=== PATIENT | male | born 1980 | race Caucasian/White ===

== ENCOUNTER 2022-10-13 13:54 | Inpatient (IN) | payer OTHER, SELFPAY ==
[2022-10-13] VITALS (14 sets, daily range): BP systolic 100–120; BP diastolic 66–85; PULSE 64–110; RESP 14–18; TEMP 36.1–36.9; O2SAT 90–97; BMI 28.8
--- NOTE | 2022-10-13 | XR_ITS ---
WS: [id number] Right knee, C-arm fluoroscopy, 10/13/2022 Clinical Data: ANTONIO PICS Comparison: Right leg, 10/13/2022 Findings: There are 2 rods inserted into the mid right tibia to reduce the comminuted fracture of the proximal right tibia. XR/XR knee RT 1-2V [id number] Impression: External skeletal fixation with rods in right mid tibia.
--- NOTE | 2022-10-13 14:10 | XR_ITS ---
WS: [id number] Exam: XR pelvis 1-2V* [id number] Date/Time of Exam: 10/13/2022 2:43 PM Reason For Exam: trauma No acute pelvic fracture identified. The superior aspect of the pelvis and sacrum are out of the fiel d-of-view. The hip joints are intact. Visualized SI joints are intact. XR/XR pelvis 1-2V* [id number] IMPRESSION: 1. No acute pelvic fracture identified. The superior aspect of the pelvis and s acrum are out of the [id number]-ocpf.
--- NOTE | 2022-10-13 14:10 | XR_ITS ---
WS: [id number] Exam: XR femur RT min 2V* [id number] Date/Time of Exam: 10/13/2022 2:43 PM Reason For Exam: trauma No acute femoral fracture or dislocation noted. Soft tissues are unremarkable. Again noted is a sever romero comminuted fracture of the upper tibia. XR/XR femur RT min 2V* [id number] IMPRESSION: 1. No acute femoral fracture.
[2022-10-13] MEDS: morphine 4 mg/mL SDV 1 mL 6 MG IVP ×2 (14:29→16:11)
[2022-10-13] MEDS: ondansetron 2 mg/ML SDV 2 mL 4 MG IVP (14:30)
--- NOTE | 2022-10-13 14:37 | XR_ITS ---
WS: [id number] Exam: XR tibia fibula RT 2V [id number] Date/Time of Exam: 10/13/2022 2:43 PM Reason For Exam: trauma There is a severely comminuted pylon type fracture of the proximal tibia with the lateral displacemen t and posterior angulation. There is also a displaced comminuted fracture of the upper fibular diaphy sis with about 15% apposition. The remaining lower leg is angulated laterally. No other fractures of the tibia or fibula. XR/XR tibia fibula RT 2V [id number] IMPRESSION: 1. Severely comminuted displaced angulated fracture of the proximal tibia. Ther e is marked separation and disruption of the lateral tibial plateau. 2. Displaced fracture of the proximal fibula with only minimal apposition.
[2022-10-13 14:50] LABS: Basophils # 0.1 10^3/uL (0.0-0.1); Basophils % 0.6 %; Eosinophils # 0.1 10^3/uL (0.0-0.8); Eosinophils % 0.9 %; Hematocrit 39.5 % (42.0-52.0); Hemoglobin 13.8 g/dL (11.7-16.6); Lymphocytes # 2.2 10^3/uL (0.8-4.8); Lymphocytes % 18.9 %; Mean Corpuscular HGB Conc 34.9 g/dL (30.0-36.0); Mean Corpuscular Hemoglobin 30.2 pg (28.0-34.0); Mean Corpuscular Volume 86.4 fl (80-94); Mean Platelet Volume 9.8 fL (7.4-10.4); Monocytes # 0.6 10^3/uL (0.2-0.9); Monocytes % 4.7 %; Neutrophils # 8.74 10^3/uL (1.8-7.7); Neutrophils % 74.6 %; Nucleated Red Blood Cells % 0 %; Platelet Count 344 10^3/cmm (130-400); Red Blood Count 4.57 10^6/uL (4.1-5.3); Red Cell Distribution Width 12.3 % (12.1-15.1); White Blood Count 11.7 10^3/uL (4.0-10.0)
--- NOTE | 2022-10-13 15:02 | ED_ITS ---
HPI - Extremity Problem General: Chief complaint: Extremity Injury, Lower Stated complaint: FALL/ LEG FRACTURE Time Seen by Provider: 10/13/22 13:58 Source: patient Mode of arrival: ambulatory History of Present Illness: 42-year-old female who presents emergency room after falling off the back end of a truck when he was loading a pallet he landed on sideways on his feet felt a popping sensation in his right knee was unable to walk has an obvious deformity denies striking his head no other injuries no loss conscious he has not eaten since yesterday. He is not on any anticoagulants no previous injury to the right knee. Complaint: extremity pain Onset (ago): minute(s) Pain Consistency: constant Location: right and knee Quality: sharp Relieving factors: nothing Exacerbating factors: nothing Associated symptoms: Deny arthralgias, chest pain, fever(s), myalgias, rash, short of breath or other Review of Systems Const: Denies: fever(s), chills, fatigue or malaise ENMT: Denies: throat pain, ear or mastoid pain, nasal discharge or nasal congestion Card: Denies: chest pain Resp: Denies: dyspnea, productive cough or non-productive cough GI: Denies: abdominal pain, nausea, vomiting, hematemesis, coffee ground emesis, diarrhea, constipation, bloating, hematochezia or melena : Denies: flank pain, dysuria, urinary frequency or urinary urgency Musc: Reports: joint pain and joint swelling; Denies: neck pain or back pain Skin/Breast: Denies: rash or pruritus PFSH ED PFSH: Medical History No significant past medical history Surgical History No pertinent past surgical history Family History Denies family history of CAD (coronary artery disease) Social History Alcohol intake: current Alcohol intake frequency: holidays/special occasions only Substance/Drug Use: never Physical Exam Const: GENERAL APPEARANCE: cooperative and comfortable ORIENTATION/CONSCIOUSNESS: Yes awake, Yes oriented to person, Yes oriented to place and Yes oriented to time HENMT: COMMON NORMALS: normocephalic, atraumatic and hearing grossly normal bilaterally HEAD & SCALP: normocephalic and atraumatic Resp: COMMON NORMALS: normal respiratory effort, No retractions, No use of accessory muscles and clear to auscultation bilaterally AUSCULTATION: clear to auscultation bilaterally Cardio: COMMON NORMALS: regular rate, regular rhythm and No murmurs present (Cardio) RATE: regular rate RHYTHM: regular rhythm GI: COMMON NORMALS: Soft to palpation and No hepatosplenomegaly present AUSCULTATION: Yes normoactive bowel sounds PALPATION: Yes Soft to palpation, No Tenderness to palpation present (GI), No Guarding due to palpation present (GI) and Yes No hepatosplenomegaly present Extremity: COMMON NORMALS: capillary refill normal and no calf tenderness OTHER: Obvious deformity of the proximal tibia on the right. Neuro: SENSORIUM/ORIENTATION: Yes oriented to person, Yes oriented to place and Yes oriented to time Skin: COMMON NORMALS: no rashes or lesions noted GENERAL SKIN EXAM: no rashes or lesions noted Course Vital Signs: Vital signs: Vital Signs Temperature 98.8 F 10/14/22 16:24 Pulse Rate 68 10/14/22 16:24 Respiratory Rate 16 10/14/22 16:24 Blood Pressure 119/71 10/14/22 16:24 Pulse Oximetry 98 10/14/22 16:24 Oxygen Delivery Me thod 10/14/22 12:45 Oxygen Flow Rate 2 10/14/22 03:00 MDM - Extremity (Nontraumatic) Medical Decision Making Comminuted proximal tibia fracture extending into the tibial plateau with significant displacement. I discussed Dr. Camarena he feels patient will need to be stabilized immediately. He is come down and seen the patient in the department will admit to medicine and consult orthopedics. Medical Records I reviewed the patient's medical records. Lab Data I reviewed the patient's lab results. 10/13/22 14:38 10/13/22 14:38 Radiology Impressions Knee X-Ray 10/13/22 00:00 Impression: External skeletal fixation with rods in right mid tibia. Femur X-Ray 10/13/22 14:10 IMPRESSION: 1. No acute femoral fracture. Pelvis X-Ray 10/13/22 14:10 IMPRESSION: 1. No acute pelvic fracture identified. The superior aspect of the pelvis and sacrum are out of the [id number]. Tibia/Fibula X-Ray 10/13/22 14:37 IMPRESSION: 1. Severely comminuted displaced angulated fracture of the proximal tibia. There is marked separation and disruption of the lateral tibial plateau. 2. Displaced fracture of the proximal fibula with only minimal apposition. Knee CT 10/14/22 08:00 IMPRESSION: 1. Moderate lipohemarthrosis. 2. Severely comminuted fracture proximal tibia with intra-articular extension, distraction and significant rotational positioning of fragments at the tibial spine. 3. Comminuted displaced fracture proximal fibula diaphysis and fracture of the proximal cortical margin of the fibula anteriorly. 4. Small collection of gas adjacent to the patella medially. Laboratory Results WBC 11.7 10^3/uL (4.0-10.0) H 10/13/22 14:38 RBC 4.57 10^6/uL (4.1-5.3) 10/13/22 14:38 Hgb 13.8 g/dL (11.7-16.6) 10/13/22 14:38 Hct 39.5 % (42.0-52.0) L 10/13/22 14:38 MCV 86.4 fl (80-94) 10/13/22 14:38 MCH 30.2 pg (28.0-34.0) 10/13/22 14:38 MCHC 34.9 g/dL (30.0-36.0) 10/13/22 14:38 RDW 12.3 % (12.1-15.1) 10/13/22 14:38 Plt Count 344 10^3/cmm (130-400) 10/13/22 14:38 MPV 9.8 fL (7.4-10.4) 10/13/22 14:38 Neut % (Auto) 74.6 % 10/13/22 14:38 Lymph % (Auto) 18.9 % 10/13/22 14:38 [place] % (Auto) 4.7 % 10/13/22 14:38 Eos % (Auto) 0.9 % 10/13/22 14:38 Baso % (Auto) 0.6 % 10/13/22 14:38 Neut # (Auto) 8.74 10^3/uL (1.8-7.7) H 10/13/22 14:38 Lymph # (Auto) 2.2 10^3/uL (0.8-4.8) 10/13/22 14:38 [place] # (Auto) 0.6 10^3/uL (0.2-0.9) 10/13/22 14:38 Eos # (Auto) 0.1 10^3/uL (0.0-0.8) 10/13/22 14:38 Baso # (Auto) 0.1 10^3/uL (0.0-0.1) 10/13/22 14:38 Nucleated RBC % (auto) 0 % 10/13/22 14:38 Nucleated RBCs # 0.0 /100WBC 10/13/22 14:38 PT 13.80 SECONDS (12.1-14.9) 10/13/22 14:38 INR 1.03 (0.8-1.2) 10/13/22 14:38 Sodium 135 mmol/L (136-145) L 10/13/22 14:38 Potassium 3.5 mmol/L (3.5-5.1) 10/13/22 14:38 Chloride 98 mmol/L (98-107) 10/13/22 14:38 Carbon Dioxide 27 mmol/L (22-29) 10/13/22 14:38 Anion Gap 13.5 (5-19) 10/13/22 14:38 BUN 13 mg/dL (6-20) 10/13/22 14:38 Creatinine 1.1 mg/dL (0.7-1.2) 10/13/22 14:38 GFR Calculation 73.4 mL/min (90-130) L 10/13/22 14:38 Glucose 126 mg/dL (65-115) H 10/13/22 14:38 Calculated Osmolality 282 mOsm/kg (285-295) L 10/13/22 14:38 Calcium 9.2 mg/dL (8.5-10.5) 10/13/22 14:38 Creatine Kinase 129 U/L (39-308) 10/13/22 14:38 Discharge Plan Discharge Patient Disposition: Admitted As Inpatient Admit Provider: Niko Camarena Clinical Impression: Closed bicondylar fracture of right tibial plateau, Fracture of fibula, proximal Condition: Stable Discharge Diet: Advance as tolerated Discharge Activity: Limit activity as instructed Coding Level of Care Code ED Link Fabric Machine Operator for Mitchell Ohara
[2022-10-13 15:10] LABS: Blood Urea Nitrogen 13 mg/dL (6-20); Calcium 9.2 mg/dL (8.5-10.5); Carbon Dioxide 27 mmol/L (22-29); Chloride 98 mmol/L (98-107); Glomerular Filtration Rate 73.4 mL/min (90-130); Glucose 126 mg/dL (65-115); Osmolality Calculated 282 mOsm/kg (285-295); Sodium 135 mmol/L (136-145)
[2022-10-13 15:11] LABS: Anion Gap 13.5 (5-19); Potassium 3.5 mmol/L (3.5-5.1); Slide Review Slide Review Perform
[2022-10-13 15:15] LABS: INR 1.03 (0.8-1.2)
--- NOTE | 2022-10-13 15:50 | PM.HP ---
Providers/Chief Complaint Chief Complaint: FALL/ LEG FRACTURE History of Present Illness Jonel Driver is a 42 year old male who presented after sustaining a fall while he was unloading his truck. He was diagnosed with tibial fracture, was taken to the OR right away. Patient did not stress any syncope, chest pain, shortness of breath nausea, vomiting or diarrhea. He is physically active. Has poor dentition otherwise no significant medical history. He lost his balance and fell off the rail. He has history of sacral fracture in the past Review of Systems Const: Denies: fever(s) Eyes: Denies: change in vision Card: Denies: chest pain Resp: Denies: dyspnea GI: Denies: abdominal pain : Denies: flank pain Musc: Reports: back pain, extremity pain, joint pain, joint swelling, joint redness, joint stiffness, limited range of motion, muscle weakness and deformity; Denies: neck pain Skin/Breast: Denies: rash Neuro: Denies: headache(s) Psych: Denies: anxiety Endo: Denies: polyuria Jace/Lymph: Denies: easy bruising All/Imm: Denies: urticaria Medications/Allergies Home Medications Medication Instructions Recorded Confirmed Last Taken Type aspirin 325 mg tablet 325 mg PO DAILY blot clot 10/14/22 10/16/22 Unknown Rx prevention 21 days #21 tabs calcium carbonate 600 mg-vitamin 1 tab PO BID Bone healing 30 days 10/14/22 10/16/22 Unknown Rx D3 10 mcg (400 unit) tablet #60 tabs losartan 100 1 tab PO DAILY 10/14/22 10/16/22 Unknown History mg-hydrochlorothiazide 12.5 mg tablet ondansetron 4 mg disintegrating 4 mg PO DAILY Nausea 5 days #5 tabs 10/14/22 10/16/22 Unknown Rx tablet oxycodone-acetaminophen 5 mg-325 1 tab PO Q6H PRN pain, postop 7 10/14/22 10/16/22 Unknown Rx mg tablet (Percocet) days #28 tabs paroxetine HCl 20 mg tablet 20 mg PO DAILY 10/14/22 10/16/22 Unknown History sennosides 8.6 mg-docusate sodium 1 tab-cap PO DAILY #14 tabs 10/14/22 10/16/22 Unknown Rx 50 mg tablet (Senna-S) Allergies Allergy/AdvReac Type Severity Reaction Status Date / Time No Known Drug Allergies Allergy Unknown Verified 10/13/22 14:27 PFSH Acute PFSH: Medical History No significant past medical history Surgical History No pertinent past surgical history Family History Denies family history of CAD (coronary artery disease) Social History Alcohol intake: current Alcohol intake frequency: holidays/special occasions only Substance/Drug Use: never Vitals/I&O/Wt Last Vital Signs Temp 98.1 F 10/13/22 13:55 Pulse 69 10/13/22 13:55 Resp 15 10/13/22 14:29 BP 110/70 10/13/22 13:55 Pulse Ox 95 10/13/22 14:29 O2 Del Method 10/13/22 13:55 Weight last 48 hrs Weight 86.183 kg Physical Exam Narrative: Young male No sign of vascular compromise of lower extremities Abdomen soft S1, S2 Currently on room air Pleasant cooperative Hanley catheter in place Doing well on room air No audible stridor or wheezing Nonfocal neuro exam Laying supine Data 10/13/22 14:38 10/13/22 14:38 A&P Assessment and plan (1) Closed bicondylar fracture of right tibial plateau: (2) No pertinent past surgical history: (3) No significant past medical history: Plan Tibial fracture N.p.o. Orthopedics consulted Patient going to the OR right away Hemodynamically stable Noted of preoperative cardiac clearance Hanley catheter in place Opioids along bowel regimen N.p.o. DVT prophylaxis SCDs for now Attestations Medical Necessity Statement*: Surgery today anticipating more than 2 midnight Diagnoses Closed bicondylar fracture of right tibial plateau S82.141A No pertinent past surgical history Z78.9 No significant past medical history
--- NOTE | 2022-10-13 16:12 | P.CONIM_ITS ---
Providers/Reason For Consult Consulting Physician/Specialty*: Niko Camarena, /orthopedic surgery Reason for Consult*: Right bicondylar tibial plateau and proximal fibula fracture, unstable Requesting Physician: Dr. Ram Attending Physician: Dr. Burk History of Present Illness History of Present Illness Jonel Driver is a 42 year old male who presents to ED today after falling off the back end of a truck when he was loading a pallet he landed on sideways on his feet felt a popping sensation in his right knee was unable to walk has an obvious deformity, denies striking his head, no other injuries, no loss conscious. He has not eaten since yesterday.? He is not on any anticoagulants no previous injury to the right knee. Patient denies any prior issues with his right knee. He is in severe pain unable to bear weight. Has noticeable swelling. Denies any numbness or tingling able to wiggle his toes. 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 Denies any pain out of proportion at this time. Denies any fevers chills chest pain shortness of breath nausea or vomiting Past medical history per patient positive for hypertension and previous smoking history however he states he has quit for the past 5 years. Review of Systems General: Reports: 10 or more systems reviewed and unremarkable except in HPI and below Medications/Allergies Allergies Allergy/AdvReac Type Severity Reaction Status Date / Time No Known Drug Allergies Allergy Unknown Verified 10/13/22 14:27 PFSH Acute PFSH: Medical History No significant past medical history Surgical History No pertinent past surgical history Vitals/I&O/Wt Last Vital Signs Temp 98.1 F 10/13/22 13:55 Pulse 69 10/13/22 13:55 Resp 16 10/13/22 16:11 BP 110/70 10/13/22 13:55 Pulse Ox 95 10/13/22 16:11 O2 Del Method 10/13/22 13:55 Weight last 48 hrs Weight 190 lb Physical Exam Narrative: General appearance?cooperative and moderate discomfort secondary to pain HEENT normocephalic atraumatic Respiratory normal respiratory effort no retractions Cardio?distal pulses palpable 2+ PT/DP MSK: Examination of the right lower extremity demonstrates no pain to the right hip or distal femur. Large palpable joint effusion noted. Patient does have severe tenderness to palpation over the proximal tibia. Obvious deformity noted of the right knee and proximal tibia. Tenderness to palpation over the proximal fibula as well. Significant swelling noted with negative wrinkle sign. Compartments are swollen but are compressible and he does not have pain out of proportion on examination. He is able to actively wiggle his toes and is able to plantarflex and dorsiflex ankle with mild pain. No pain with passive range of motion of the toes or ankle. Patient's DP pulse and posterior tib pulse 2+. Toes are warm and well-perfused brisk capillary refill less than 2 seconds. His sensations intact light touch to the SPN/DPN/tibial saphenous and sural nerve distribution. No open wound is noted. Secondary survey examination of the bilateral upper extremities and left lower extremity unremarkable. No pain with pelvic compression. He has normal range of motion of these joints no deformities and no tenderness to palpation. Gross motor and sensation intact of bilateral upper extremity and left lower extremity. Data 10/13/22 14:38 10/13/22 14:38 Xray Ortho: My impression: X-rays multiple views of the right knee and tib-fib demonstrate a bicondylar tibial plateau with metaphyseal diaphyseal separation with inherent instability and an associated proximal fibula fracture. Significant displacement deformity/angulation noted. Normal associated soft tissue swelling and joint effusion appreciated. X-rays of the pelvis and femur are reviewed and demonstrate no acute fracture dislocation of the femur or pelvis. A&P Assessment and plan (1) Closed bicondylar fracture of right tibial plateau: Plan MDM: Patient is a pleasant 42-year-old gentleman who is a industrial truck mechanic and fell off the back of a truck today. Patient has an unstable right bicondylar tibial plateau fracture with already noticeable swelling this early from his injury. He had last eaten since yesterday. At this point time given his inherently unstable injury and significant swelling would recommend a take patient to the OR emergently this evening for right knee spanning external fixator with joint aspiration of the right knee for pain relief. We will have him admitted by the hospitalist team for pain control and monitoring overnight. At this point time he has no findings consistent with compartment syndrome however given his inherent instability would recommend early fracture stabilization and plan for ladder definitive fixation in the next 2 weeks once the soft tissues amenable for definitive plate fixation. His vascular status at this point in time is stable as his distal pulses are palpable 2+ both PT and DP. Given the fracture pattern and more higher energy we will obtain ABIs as well prior to surgical intervention. Plan will be for CT scan of the right knee postoperatively after Ex-Fix application for preoperative planning for his definitive fixation. Maribel ent will be admitted overnight with plan for likely discharge home hopefully tomorrow if his pain is controlled. Patient will be nonweightbearing to the right lower extremity recommend ice and elevation. Patient understands and agrees with current plan. All questions answered. He understands the risk benefits complication alternatives to surgical and nonsurgical treatment options. Given the inherent instability, deformity and his young age would recommend surgical intervention and this will need to be in staged approach given his soft tissue swelling. He understands the risks include but not limited to make a better make it worse, injury to nerves or vessels, wound/pin site complications, worsening pain. Understanding these risks he agrees to proceed with surgical intervention. All questions answered. Hospitalist to admit N.p.o. Splint immobilized in the emergency department Ice and elevate Pain control ABIs Plan for OR for right knee spanning external fixator and right knee joint aspiration today Patient will be admitted postoperatively and monitored Plan will be for CT scan right knee postoperatively Coding Level of Care Code Acute Code for Chg Fwd Diagnoses Closed bicondylar fracture of right tibial plateau S82.141A Time Spent (min) 45
--- NOTE | 2022-10-13 16:23 | P.ANESASSM_ITS ---
Pre-Anesthetic Assessment Height/Weight: Height 1.73 m Weight 86.183 kg Temp Pulse Resp BP Pulse Ox O2 Del Method 98.1 F 64 16 107/74 95 10/13/22 13:55 10/13/22 15:28 10/13/22 16:11 10/13/22 15:28 10/13/22 16:11 10/13/22 13:55 Preop Diagnosis: Right bicondylar unstable tibial plateau fracture Ex fix Familial anesthetic complications: None Was Beta Ledy taken within 24 hours: N/A Was Clonidine taken within 24 hours: N/A Last intake: > 8hrs hours (pepsi at 1300) Social No alcohol and No tobacco Exam alert, oriented x 3, clear to auscultation bilaterally and regular rate & rhythm Airway Mallampati: Class II Dentition: chipped CV/HEM Hypertension Anesthetic Plan ASA status: 2E Anesthesia: General Risk of > 500 ml blood loss (7ml/kg in children): No Medications/Allergies Allergies Allergy/AdvReac Type Severity Reaction Status Date / Time No Known Drug Allergies Allergy Unknown Verified 10/13/22 14:27 [facility] Anesthesia Medical History No significant past medical history Surgical History No pertinent past surgical history Data Anesthesia 10/13/22 14:38 10/13/22 14:38 Short CBC 10/13/22 Range/Units 14:38 WBC 11.7 H (4.0-10.0) 10^3/uL Hgb 13.8 (11.7-16.6) g/dL Hct 39.5 L (42.0-52.0) % MCV 86.4 (80-94) fl Plt Count 344 (130-400) 10^3/cmm Neut % (Auto) 74.6 % Neut # (Auto) 8.74 H (1.8-7.7) 10^3/uL BMP 10/13/22 14:38 Sodium 135 L Potassium 3.5 Chloride 98 Carbon Dioxide 27 BUN 13 Creatinine 1.1 Glucose 126 H Calcium 9.2 Coags 10/13/22 14:38 PT 13.80 INR 1.03 Cardiac Studies: No Data to Display
--- NOTE | 2022-10-13 16:31 | USCV_ITS ---
Jonel Driver Age: 42 Gender: M : 1980 Exam Date: 10/13/2022 18:19 Ordering Phys: Boo Ram DO Technologist: Exam Location: [facility] [place] Indication: trauma FINDINGS SOFI of 1.29 on the right side The thigh brachial index on the right side was 1.23 CONCLUSIONS Normal SOFI on the right side Dr Maryann Cunha MD [facility] (Electronically Signed) Final Date: 17 October 2022 07:11 S
[2022-10-13] MEDS: acetaminophen 1,000 MG/100 ML PIGGYBACK 400 MG IV (16:40)
[2022-10-13] MEDS: ketorolac 30 mg/mL INJ IVP (16:41)
[2022-10-13] MEDS: sodium chloride 0.9% 1,000 ML 30 ML IV (16:41)
[2022-10-13] MEDS: ceFAZolin 2,000 MG in sodium chloride 0.9% (plus) 50 ML 100 MG IV (17:41)
[2022-10-13] MEDS: lidocaine 2% INJ 20 mL INJECTION (18:03)
--- NOTE | 2022-10-13 18:50 | PM.OP2 ---
Brief Operative Note Date of procedure: 10/13/22 Pre-op diagnosis: Right knee bicondylar tibial plateau fracture unstable, right knee hemarthr Post-op diagnosis: same (Right knee hemarthrosis) Procedure Done: Right knee spanning external fixator application for bicondylar tibial plateau fracture Right knee joint hemarthrosis aspiration and injection Surgeon: Niko Camarena Estimated blood loss (mL): 2 Complications: None Post-op Plan: Patient taken to PACU in stable condition. Recovering well. Will be admitted to the floor for observation overnight with elevation, ice, pain control. Neurovascular checks. We will obtain a CT scan tomorrow morning for preoperative planning. Patient admitted by internal medicine is primary. Plan if pain controlled tomorrow we will likely DC tomorrow. DVT prophylaxis, PT/OT, postoperative antibiotics. Condition: stable Disposition: floor Coding Level of Care Code Acute Code for Mitchell Ohara
--- NOTE | 2022-10-13 18:53 | PM.PACU ---
PACU note Narrative: Patient taken to PACU in stable condition. Patient recovering well. Sensation intact to light touch distally. Pin sites clean dry and intact. Patient is able to wiggle toes, plantarflex and dorsiflex ankle. Pain controlled. Distal pulses palpable and dopplerable with ultrasound. Brisk capillary refill less than 2 seconds. Compartments are soft and compressible. Exam: awake Disposition: back to floor
--- NOTE | 2022-10-13 18:54 | PM.OP ---
Operative Report Date of procedure: October 13, 2022 Pre-op diagnosis: Preop Diagnosis Right bicondylar unstable tibial plateau fracture Right knee hemarthrosis Post-op diagnosis: Same Procedure done: Right knee spanning external fixator for bicondylar unstable tibial plateau fracture Right knee joint hemarthrosis aspiration and lidocaine injection for pain Implants: Amaya spanning knee external fixator Trejo 3 set 2x femur pins 180 mm 2 x tibial pins 150 mm 2 x 450 mm carbon fiber rods 1x 150 mm carbon fiber em Surgeon: Niko Camarena DO Estimated blood loss: 5 mL No tourniquet IV fluids: 1200 mL Complications: None Findings: See operative report narrative Condition: stable Disposition: floor Brief History: Patient is a pleasant 42-year-old male who sustained a unstable right bicondylar tibial plateau fracture while at work stepping off the back of a truck. Patient was seen evaluated emergency department orthopedics was consulted for fracture and internal medicine was consulted for admission. Given the inherent instability of this fracture as well as desire to prevent any further swelling recommending right knee spanning external fixator in emergent fashion to provide fracture stability. Patient had neurovascular status intact distally. Distal pulses were palpable. Given the high-energy fracture pattern however ABIs were performed patient did have ultrasound which showed appropriate flow distally as well as ABIs that were greater than 0.9. At this point time we talked about treatment options as far as nonoperative and operative invention. Ultimately patient has swelling with a negative wrinkle sign that would not be amenable for definitive fixation today. Given his young age as well as the inherent instability and risk for potential vascular compromise and/or compartment syndrome if left unstable, would recommend right knee spanning external fixator placement in emergent fashion as well as plan on right knee aspiration of the hemarthrosis for pain control as well as injection of lidocaine. Patient understands the risk benefits complication alternatives surgical nonsurgical treatment options. Understanding his risk of surgery he elects to proceed with surgery today. He does live roughly 2 and half to 3 hours away from our institution. Plan will be for stabilizing this fracture and potentially following up with me or a closer orthopedic surgeon near his home. Patient and family understand agree with current plan. All questions answered. Procedure: Patient was seen evaluated in the preoperative holding area. Consent was reviewed and signed with patient. Patient seen evaluated by Anesthesia Department once cleared for surgery and patient is obtained appropriate ABIs confirming no vascular injury patient was taken back to the operative suite. He underwent anesthesia per the anesthesia department transported onto the OR table. All bony prominences well-padded patient was appropriate secured to the bed. Patient's right lower extremity was then placed onto bone foam and an ipsilateral hip was applied for appropriate leg positioning. Preoperative pulses were palpable as well as we utilized a Doppler ultrasound for preoperative pulses with plan to compare postoperatively after manipulation. At this point time the right lower extremity was then prepped and draped in standard orthopedic fashion. Final timeout was performed. Patient received appropriate preoperative antibiotics. Large C-arm was then brought in and utilized for this case for appropriate pin placement with plan for spanning knee external fixator. First I placed my 2 femur pins in appropriate anterior lateral position roughly 4 fingerbreadths above the patella. This had appropriate wide spread to accommodate the Amaya Trejo 3 clamp set. I selected 2 pins 180 mm in length. Under fluoroscopic imaging these pins were subsequently drilled and then placed and secured by hand at appropriate depth. They were confirmed to be bicortical with excellent fixation and appropriate spread in parallel fashion. Next I turned my attention towards the tibial pins to 150 mm tibial pins were then selected I then brought in large C arm to confirm the fracture site and the most distal extent of the fracture pattern. I then planned where potential dual plating fixation would occur and made sure my distal tibial pins were out of my zone of fracture fixation these were placed in the distal aspect of the tibia shaft. Identified the crest. Made 2 small stab incisions with preplanned for the Amaya Trejo 3 clamp and subsequently drilled and placed the 2 tibial pins in parallel fashion with bicortical fixation and anterior to posterior fashion. These were confirmed with fluoroscopic imaging to be in appropriate length. Next the pin sites were then subsequently cleaned and were appropriately dressed with Xeroform Curlex and this was placed under the clamp bars and subsequently I directed the spanning external fixator utilizing 450 mm carbon fiber rods x2. These were then secured proximally and were kept released distally with plan for fracture manipulation. The bone joint line of the knee to be in appropriate flexion which would offload the posterior neurovascular structures flexion was roughly at 15 to 20 degrees. Max C arm was then brought in and I subsequently performed manual inline traction as well as small adjustments with my reduction to obtain a satisfactory length alignment and rotation in both the AP and lateral x-rays of the bicondylar tibial plateau fracture. Once I was satisfied with my reduction the clamps were then tightened distally and all bolts were appropriately secured. In order for added additional fixation given the long spread of pin placement to accommodate for pins to be out of the site of definitive plate fixation I then added another additional crossbar of 150 mm carbon fiber em which was utilized with us bar to bar clamps and was appropriately secured and anterior fixation.. Final x-rays were taken. Pins Were Then. This completed the external fixator placement Next a standard superolateral injections site was then performed under sterile aseptic technique of the right knee for joint aspiration utilizing 18-gauge spinal needle. 18-gauge spinal needle I then subsequently aspirated roughly 55 cc of hemarthrosis. I then subsequently injected 15 cc of lidocaine for pain relief. Needle was removed and Band-Aid was applied. I then subsequently dressed the Ex-Fix with a double 6 inch Ab wrap. I then examined pulses which were palpable compared to preoperatively as well as dopplerable pulses comparative preoperatively. Patient was then subsequently awakened from anesthesia and taken back in stable condition. Disposition: Patient taken to PACU in stable condition recovering well pain well controlled sensation tact light touch distally is able to wiggle toes plantarflex dorsiflex ankle. Will be admitted to the floor postoperatively for 24-hour observation given his severe injury as well as Ex-Fix placement just to follow closely his neurovascular status as well as monitor for any swelling development for compartment syndrome. Patient will receive appropriate pain medication postoperative antibiotics and DVT prophylaxis postoperatively. We will obtain a CT scan postoperatively. Internal medicine on board for medical management. Plan will be to follow-up in 2 weeks with myself for a orthopedic near his hometown. Patient understands and agrees with current plan. All questions answered.
[2022-10-13 20:17] LABS: Creatine Phosphokinase 129 U/L (39-308)
--- NOTE | 2022-10-13 20:37 | ANE.PACU2 ---
Inpatient post-anesthesia follow up: Airway intact: Yes Vital signs: Temperature 97 F Pulse Rate 93 Respiratory Rate 18 Blood Pressure 120/69 Pulse Oximetry 97 Oxygen Delivery Me thod Room Air Oxygen Flow Rate Fraction of Inspir ed Oxygen Hydration adequate: Yes Nausea and vomiting: No Pain level: 1 Mental status: Baseline
[2022-10-13] MEDS: sodium chloride 0.9% 1,000 ML 75 ML IV (22:40)
[2022-10-14 01:00] VITALS: BP 107/69; PULSE 68; RESP 17; O2SAT 97
[2022-10-14] MEDS: ceFAZolin 2,000 MG in sodium chloride 0.9% (plus) 50 ML 100 MG IV ×2 (01:40→08:30)
[2022-10-14 03:00] VITALS: BP 128/76; PULSE 60; RESP 17; O2SAT 97
[2022-10-14] MEDS: acetaminophen 500 mg Tablet PO ×2 (05:05→14:56)
[2022-10-14] MEDS: TRAMadol 50 mg Tablet PO ×3 (05:07→14:56)
[2022-10-14 05:52] LABS: Basophils % 0.1 %; Hematocrit 36.4 % (42.0-52.0); Hemoglobin 12.4 g/dL (11.7-16.6); Lymphocytes # 0.9 10^3/uL (0.8-4.8); Lymphocytes % 8.1 %; Mean Corpuscular HGB Conc 34.1 g/dL (30.0-36.0); Mean Corpuscular Hemoglobin 30.4 pg (28.0-34.0); Mean Corpuscular Volume 89.2 fl (80-94); Mean Platelet Volume 9.7 fL (7.4-10.4); Monocytes # 0.4 10^3/uL (0.2-0.9); Monocytes % 3.8 %; Neutrophils # 9.39 10^3/uL (1.8-7.7); Neutrophils % 87.4 %; Nucleated Red Blood Cells % 0 %; Platelet Count 356 10^3/cmm (130-400); Red Blood Count 4.08 10^6/uL (4.1-5.3); Red Cell Distribution Width 12.5 % (12.1-15.1); White Blood Count 10.7 10^3/uL (4.0-10.0)
[2022-10-14 06:06] LABS: Anion Gap 14.5 (5-19); Blood Urea Nitrogen 17 mg/dL (6-20); Calcium 8.1 mg/dL (8.5-10.5); Carbon Dioxide 27 mmol/L (22-29); Chloride 98 mmol/L (98-107); Glomerular Filtration Rate 47.6 mL/min (90-130); Glucose 153 mg/dL (65-115); Osmolality Calculated 285 mOsm/kg (285-295); Potassium 4.5 mmol/L (3.5-5.1); Sodium 135 mmol/L (136-145)
--- NOTE | 2022-10-14 08:00 | CTR_ITS ---
PROCEDURE INFORMATION: Exam: CT Right Lower Extremity Without Contrast, Knee Exam date and time: 10/14/2022 7:56 AM Age: 42 years old Clinical indication: Injury or trauma; Fall; Blunt trauma; Knee; Right; Prior surgery; Surgery date: Post-operative (0-2 days); Surgery type: Preop planning bicondylar tib plat FX post ex fix TECHNIQUE: Imaging protocol: CT of the right lower extremity without contrast was performed. Exam focused on the knee. Radiation optimization: All CT scans at this facility use at least one of these dose optimization techniques: automated exposure control; mA and/or kV adjustment per patient size (includes targeted exams where dose is matched to clinical indication); or iterative reconstruction. REPORTING DATA: Count of CT and Cardiac NM exams in prior 12 months: This patient has received 0 known CTs and 0 known cardiac nuclear medicine studies in the 12 months prior to the current study. COMPARISON: US Lower Arterial 10/13/2022 6:19 PM RADIATION DOSE METRICS: Total DLP (mGy-cm): 403.41 FINDINGS: Tubes, catheters and devices: Partial visualization external fixation em at the femoral diaphysis distally. Bones/joints: Lipohemarthrosis right knee. Small collection of gas adjacent to the medial patella margin. The distal femur is intact. The patella is intact. Severely comminuted proximal tibia metaphyseal fracture with intra-articular extension. Prominent rotational in cranial displacement of fragments at the tibial spine to the level of the intercondylar notch of the femur. Prominently comminuted fracture of the proximal fibula diaphysis with posterior and medial displacement of the distal fracture fragment. No significant angulation. Cortical avulsion fracture of the proximal margin of the fibula anteriorly without significant distraction. Soft tissues: Diffuse edema. CT/CT knee RT wo con* [id number] IMPRESSION: 1. Moderate lipohemarthrosis. 2. Severely comminuted fracture proximal tibia with intra-articular extension, distraction and significant rotational positioning of fragments at the tibial spine. 3. Comminuted displaced fracture proximal fibula diaphysis and fracture of the proximal cortical margin of the fibula anteriorly. 4. Small collection of gas adjacent to the patella medially.
[2022-10-14] MEDS: calcium carb-vit d 600mg/400unit 1 Tablet 1 EACH PO (08:29)
[2022-10-14] MEDS: multivitamin therapeutic Tablet 1 TAB PO (08:30)
[2022-10-14] MEDS: sennosides-docusate Tablet 1 TAB PO (08:30)
[2022-10-14] MEDS: aspirin 325 mg EC Tablet PO (08:30)
[2022-10-14] MEDS: sodium chloride 0.9% 1,000 ML 75 ML IV (10:02)
--- NOTE | 2022-10-14 11:26 | PM.PN ---
Subjective Subjective: Patient seen and evaluated this morning and [id number] present patient is recovering well he is resting comfortably in bed had no issues overnight his pain has been well controlled. States he is ready to discharge today. States he is talk with his work and we will see where we will Workmen's Comp. tells him to go for his definitive fixation understands he can always follow-up with me in 2 weeks for evaluation of the soft tissue envelope with plan for definitive fixation in 2 to 3 weeks. Will receive appropriate pain medication as well as DVT prophylaxis postoperatively. They will receive appropriate discharge instructions care pertaining to his pin sites. He should be nonweightbearing to the right lower extremity. Patient and understand and agree with current plan. All questions answered. Plan will be for likely discharge later today. Internal medicine on board for medical management. Vitals/I&O/Wt Last Vital Signs Temp 97.8 F 10/13/22 20:30 Pulse 60 10/14/22 03:00 Resp 17 10/14/22 03:00 BP 128/76 10/14/22 03:00 Pulse Ox 97 10/14/22 03:00 O2 Del Method 10/14/22 03:00 O2 Flow Rate 2 10/14/22 03:00 10/13/22 10/14/22 10/14/22 22:59 06:59 14:59 Intake Total 1450 / 1450 50 / 1500 1020.5 / 1020.5 Output Total 5 / 5 600 / 600 Balance 1445 / 1445 50 / 1495 420.5 / 420.5 Weight last 48 hrs Weight 190 lb Physical Exam Narrative: Ex-Fix on in place right spanning Ex-Fix of the right lower extremity. Dressings on in place that is clean dry and intact. Patient is able to wiggle toes plantarflex and dorsiflex ankle. Sensation tact light touch distally. Distal pulses are palpable DP and posterior tib. Toes warm well perfused. Brisk capillary refill less than 2 seconds. Patient does have noticeable swelling at the fracture site normal given fracture pattern however compartments are soft and compressible. No acute signs of compartment syndrome. He is able to tolerate passive range of motion of toes or ankle without any pain or discomfort. Data 10/14/22 04:56 10/14/22 04:[address]: Radiologist's impression: CT scan right knee postop Ex-Fix placement IMPRESSION: 1. ? Moderate lipohemarthrosis. 2. ? Severely comminuted fracture proximal tibia with intra-articular extension, distraction and significant rotational positioning of fragments at the tibial spine. 3. ? Comminuted displaced fracture proximal fibula diaphysis and fracture of the proximal cortical margin of the fibula anteriorly. 4. ? Small collection of gas adjacent to the patella medially. A&P Assessment and plan (1) Closed bicondylar fracture of right tibial plateau: Plan Nonweightbearing right lower extremity Ice and elevate as needed Daily pin site care as instructed Pain control DVT prophylaxis Postoperative antibiotics CT scan reviewed Plan for follow-up within the next 1 to 2 weeks with myself or orthopedic surgeon near patient's hometown or patient's Workmen's Comp. orthopedic surgeon Stable for discharge from orthopedic standpoint. Attestations Medical Necessity Statement*: Ongoing care of right bicondylar tibial plateau fracture Coding Level of Care Code Acute Code for Chg Fwd Diagnoses Closed bicondylar fracture of right tibial plateau S82.141A Time Spent (min) 30
[2022-10-14 12:45] VITALS: BP 119/71; PULSE 68; RESP 16; TEMP 37.1; O2SAT 98
--- NOTE | 2022-10-14 12:49 | PM.PN ---
Subjective Subjective: Postop No postop complications Afebrile Room air Vitals/I&O/Wt Last Vital Signs Temp 98.8 F 10/14/22 12:45 Pulse 68 10/14/22 12:45 Resp 16 10/14/22 12:45 BP 119/71 10/14/22 12:45 Pulse Ox 98 10/14/22 12:45 O2 Del Method 10/14/22 12:45 O2 Flow Rate 2 10/14/22 03:00 10/13/22 10/14/22 10/14/22 22:59 06:59 14:59 Intake Total 1450 / 1450 50 / 1500 1020.5 / 1020.5 Output Total 5 / 5 600 / 600 Balance 1445 / 1445 50 / 1495 420.5 / 420.5 Weight last 48 hrs Weight 86.183 kg Physical Exam Narrative: Patient clinically doing well Pleasant cooperative Abdomen soft S1, S2 Pleasant cooperative Room air No audible stridor or wheezing Nonfocal neuro exam Data 10/14/22 04:56 10/14/22 04:56 A&P Assessment and plan (1) Closed bicondylar fracture of right tibial plateau: Plan Postop day 1 Continue regular diet DVT prophylaxis on board Opiate and bowel regimen Discontinue IV fluids Discontinue Hanley catheter We will follow along orthopedics PT evaluation Add Peyton Jensen Medical Necessity Statement*: Discharge depending on PT evaluation Coding Level of Care Code 60579 Diagnoses Closed bicondylar fracture of right tibial plateau S82.141A
[2022-10-14] MEDS: enoxaparin 40 mg/0.4 mL Syringe SUBCUT (13:04)
--- NOTE | 2022-10-14 14:28 | PM.DCS ---
Discharge Providers Date of Admission: 10/13/22 18:21 Date of Discharge: October 14, 2022 Attending Provider at Admission: Niko Camarena DO Attending Provider at Discharge: Fariba Burk MD Diagnoses at Discharge Discharge Diagnosis (1) Closed bicondylar fracture of right tibial plateau: Status: Acute Reason for Visit Reason for Visit: FALL/ LEG FRACTURE Hospital Course Hospital Course 42-year male who sustained a fall when he lost his balance while unloading his truck, Dr. Camarena was consulted, status post right knee external fixator application for bicondylar tibial plateau fracture right knee joint hemarthrosis aspiration and injection Estimated blood loss of 2 mL, He will follow-up with Dr. Camarena for external fixator removal within a week, he was given opioids, he was given DVT prophylaxis as well at the time of discharge, patient did very well with PT and was deemed stable to return home with family. Family meeting was conducted they are agreeable with the plan Physical Exam Narrative: Awake and alert Pain-free S1, S2 Poor dentition Room air Blood pressure stable Nonfocal neuro exam Right leg with external fixator Discharge Data Studies Completed and Pending Completed Studies During Hospitalization Category Date Time Status CT knee RT wo con* [id number] Routine Cat Scan 10/14/22 08:00 Completed XR femur RT min 2V* [id number] Stat Exams 10/13/22 14:10 Completed XR pelvis 1-2V* [id number] Stat Exams 10/13/22 14:10 Completed XR tibia fibula RT 2V [id number] Stat Exams 10/13/22 14:37 Completed Pending at discharge Category Date Time Status C-arm Fluoroscopy [id number] Routine Exams 10/13/22 16:10 Taken Type and Screen Routine Lab 10/13/22 16:09 Uncollected CV segpressure LE RT sgl [id number] Stat Ultrasound 10/13/22 16:31 Taken Radiology Impressions Femur X-Ray 10/13/22 14:10 IMPRESSION: 1. No acute femoral fracture. Pelvis X-Ray 10/13/22 14:10 IMPRESSION: 1. No acute pelvic fracture identified. The superior aspect of the pelvis and sacrum are out of the [id number]. Tibia/Fibula X-Ray 10/13/22 14:37 IMPRESSION: 1. Severely comminuted displaced angulated fracture of the proximal tibia. There is marked separation and disruption of the lateral tibial plateau. 2. Displaced fracture of the proximal fibula with only minimal apposition. Knee CT 10/14/22 08:00 IMPRESSION: 1. Moderate lipohemarthrosis. 2. Severely comminuted fracture proximal tibia with intra-articular extension, distraction and significant rotational positioning of fragments at the tibial spine. 3. Comminuted displaced fracture proximal fibula diaphysis and fracture of the proximal cortical margin of the fibula anteriorly. 4. Small collection of gas adjacent to the patella medially. Laboratory Results WBC 10.7 10^3/uL (4.0-10.0) H 10/14/22 04:56 RBC 4.08 10^6/uL (4.1-5.3) L 10/14/22 04:56 Hgb 12.4 g/dL (11.7-16.6) 10/14/22 04:56 Hct 36.4 % (42.0-52.0) L 10/14/22 04:56 MCV 89.2 fl (80-94) 10/14/22 04:56 MCH 30.4 pg (28.0-34.0) 10/14/22 04:56 MCHC 34.1 g/dL (30.0-36.0) 10/14/22 04:56 RDW 12.5 % (12.1-15.1) 10/14/22 04:56 Plt Count 356 10^3/cmm (130-400) 10/14/22 04:56 MPV 9.7 fL (7.4-10.4) 10/14/22 04:56 Neut % (Auto) 87.4 % 10/14/22 04:56 Lymph % (Auto) 8.1 % 10/14/22 04:56 [place] % (Auto) 3.8 % 10/14/22 04:56 Eos % (Auto) 0.0 % 10/14/22 04:56 Baso % (Auto) 0.1 % 10/14/22 04:56 Neut # (Auto) 9.39 10^3/uL (1.8-7.7) H 10/14/22 04:56 Lymph # (Auto) 0.9 10^3/uL (0.8-4.8) 10/14/22 04:56 [place] # (Auto) 0.4 10^3/uL (0.2-0.9) 10/14/22 04:56 Eos # (Auto) 0.0 10^3/uL (0.0-0.8) 10/14/22 04:56 Baso # (Auto) 0.0 10^3/uL (0.0-0.1) 10/14/22 04:56 Nucleated RBC % (auto) 0 % 10/14/22 04:56 Nucleated RBCs # 0.0 /100WBC 10/14/22 04:56 PT 13.80 SECONDS (12.1-14.9) 10/13/22 14:38 INR 1.03 (0.8-1.2) 10/13/22 14:38 Sodium 135 mmol/L (136-145) L 10/14/22 04:56 Potassium 4.5 mmol/L (3.5-5.1) 10/14/22 04:56 Chloride 98 mmol/L (98-107) 10/14/22 04:56 Carbon Dioxide 27 mmol/L (22-29) 10/14/22 04:56 Anion Gap 14.5 (5-19) 10/14/22 04:56 BUN 17 mg/dL (6-20) 10/14/22 04:56 Creatinine 1.6 mg/dL (0.7-1.2) H 10/14/22 04:56 GFR Calculation 47.6 mL/min (90-130) L 10/14/22 04:56 Glucose 153 mg/dL (65-115) H 10/14/22 04:56 Calculated Osmolality 285 mOsm/kg (285-295) 10/14/22 04:56 Calcium 8.1 mg/dL (8.5-10.5) L 10/14/22 04:56 Magnesium 2.0 mg/dL (1.7-2.3) 10/14/22 04:56 Creatine Kinase 129 U/L (39-308) 10/13/22 14:38 Vitals Last Vital Signs Temp 98.8 F 10/14/22 12:45 Pulse 68 10/14/22 12:45 Resp 16 10/14/22 12:45 BP 119/71 10/14/22 12:45 Pulse Ox 98 10/14/22 12:45 O2 Del Method 10/14/22 12:45 O2 Flow Rate 2 10/14/22 03:00 Discharge Plan Discharge Patient Disposition: Home Condition: Stable Prescriptions: New Percocet 5-325 mg tablet 1 tab PO Q6H PRN (Reason: pain, postop) 7 Days Qty: 28 0RF ondansetron 4 mg tablet,disintegrating 4 mg PO DAILY 5 Days Qty: 5 0RF calcium carbonate-vitamin D3 600 mg-10 mcg (400 unit) Tablet 1 tab PO BID 30 Days Qty: 60 0RF aspirin 325 mg tablet 325 mg PO DAILY 21 Days Qty: 21 0RF Senna-S 8.6-50 mg tablet 1 tab-cap PO DAILY Qty: 14 0RF Continued paroxetine HCl 20 mg tablet 20 mg PO DAILY losartan-hydrochlorothiazide 100-12.5 mg tablet 1 tab PO DAILY Discharge Orders: Discharge Order (Routine); Ordered 10/14/22 Ordered By: Fariba Burk Other Ambulatory Orders: DME: Cane/ Crutches (Order) Location: None Selected Ordered By: Fariba Burk Referrals: Niko Camarena DO [Physician] - 7-10 days (Follow-up with Dr. Camarena in the office in the next 2 weeks or with local orthopedic surgeon for evaluation and plan for definitive fracture repair) Discharge Diet: Advance as tolerated Discharge Activity: Limit activity as instructed Patient Instructions: Opioid Safety Activity Restrictions/Additional Instructions: Orthopedic discharge instructions: Patient should be nonweightbearing to the right lower extremity Keep pin sites clean dry and intact May clean these daily with hydrogen peroxide and Q-tips after 48 to 72 hours Take pain medication as prescribed Take aspirin for blood clot prevention as prescribed Take antinausea medication as needed Supplement with Citracal vitamin D for bone healing Elevation and ice for swelling May remove Ab wrap as needed Follow-up with Dr. Camarena in the office in the next 2 weeks or with local orthopedic surgeon for evaluation and plan for definitive fracture repair Contact the office for any questions or concerns Discharge Attestations Time Spent in Discharge Care*: less than 30 min Quality Metrics Clinical Quality Measures [ No reported AMI, CVA or VTE this stay] Coding Level of Care Code Acute Code for Chg Fwd Diagnoses Closed bicondylar fracture of right tibial plateau S82.141A
[2022-10-14 16:24] VITALS: BP 119/71; PULSE 68; RESP 16; TEMP 37.1; O2SAT 98
== END 2022-10-14 13:20 | disposition home or self-care (01) | DRG 494 ==
LOC: ER 15:21 → OR 16:11 → MEDSURG 10-14 01:12
PROVIDERS: Admitting Provider Student in an Organized Health Care Education/Training Program; Emergency Provider Family Medicine; Visit Provider Internal Medicine
PROC: 0QHG34Z Insertion of Internal Fixation Device into Right Tibia, Percutaneous Approach (ICD-10-PCS; principal; 2022-10-13 17:00)
PROC: 0QHG34Z Insertion of Internal Fixation Device into Right Tibia, Percutaneous Approach (ICD-10-PCS; 2022-10-13 17:00)
DX: S82.141A Displaced bicondylar fracture of right tibia, initial encounter for closed fracture (principal); S82.831A Other fracture of upper and lower end of right fibula, initial encounter for closed fracture; W17.89XA Other fall from one level to another, initial encounter; Y99.0 Civilian activity done for income or pay
CPT/HCPCS: 36415; 72170; 73552; 73560; 73590; 73700; 76000; 80048; 82550; 83735; 85025; 85610; 93922; 96365; 96372; 96375; 96376; 97116; 97161; 97165; 97530; 99285; C1713; J0131; J0690; J1100; J1650; J1885; J2250; J2270; J2310; J2370; J2405; J2704; J3010; J3490; J7030

== ENCOUNTER 2022-11-01 18:32 | Observation (INO) | payer OTHER, SELFPAY ==
[2022-11-01] VITALS (12 sets, daily range): BP systolic 92–129; BP diastolic 61–86; PULSE 92–110; RESP 11–22; TEMP 36.4–37.8; O2SAT 93–100; BMI 28.5
[2022-11-01] MEDS: ketorolac 30 mg/mL INJ IVP (10:33)
[2022-11-01] MEDS: acetaminophen 1,000 MG/100 ML PIGGYBACK 400 MG IV (10:34)
[2022-11-01] MEDS: sodium chloride 0.9% 1,000 ML 30 ML IV (10:34)
[2022-11-01] MEDS: lactated ringers 500 ML IV (10:56)
--- NOTE | 2022-11-01 12:04 | W.PM.OPSUD ---
Surgery/Procedure H&P Update DATE OF PROCEDURE: November 01, 2022 DATE H&P PERFORMED: 10/23/22 CHANGES TO PREVIOUS DOCUMENTATION: None. Soft tissue envelope inspected patient has positive wrinkle sign prior fracture blisters have all well-healed and epithelialized. Soft tissue amenable for surgical intervention. Patient understands risk benefits complication alternatives surgical nonsurgical treatment options. Understanding risk of surgery he agrees to proceed with surgical intervention. All questions answered. PREOP DIAGNOSIS: Right knee bicondylar tibial plateau fracture PRIMARY INDICATION FOR PROCEDURE: Right bicondylar tibial plateau fracture status post Ex-Fix with plan for Ex-Fix removal and ORIF right bicondylar tibial plateau fracture PLANNED PROCEDURE: Operation Date: 11/01/22 12:20 Proposed Procedures p right knee external fixator removal:[id number]?bicondyler tibial plateau open reduction internal fixation S82.?141A(Right) - Niko Camarena, DO s bicondyler tibial plateau open reduction internal fixation(Right) - Niko Camarena, DO
[2022-11-01] MEDS: ceFAZolin 2,000 MG in sodium chloride 0.9% (plus) 50 ML 100 MG IV ×3 (12:20→23:28)
[2022-11-01] MEDS: tranexamic acid 1,000 mg/10mL SDV 1000 MG IV (13:08)
--- NOTE | 2022-11-01 13:30 | ANES.PREANE2 ---
Pre-Anesthetic Assessment Height/Weight: Height 17.98 m Weight 88.451 kg Temp Pulse Resp BP Pulse Ox O2 Del Method 100.0 F H 92 17 124/74 98 11/01/22 10:20 11/01/22 10:20 11/01/22 10:20 11/01/22 10:20 11/01/22 10:20 11/01/22 10:20 Preop Diagnosis: Right knee bicondylar tibial plateau fracture Operation Date: 11/01/22 12:20 Proposed Procedures p right knee external fixator removal:[id number]?bicondyler tibial plateau open reduction internal fixation [id number](Right) - Niko Camarena DO s bicondyler tibial plateau open reduction internal fixation(Right) - Niko Camarena DO Familial anesthetic complications: none Was Beta Ledy taken within 24 hours: N/A Was Clonidine taken within 24 hours: N/A Last intake: Intake Last Liquid Date 10/31/22 Last Liquid Time 23:00 Last Solid Date 10/31/22 Last Solid Time 17:00 Social No alcohol and No tobacco Exam alert, oriented x 3, clear to auscultation bilaterally and regular rate & rhythm Airway Submandibular: within normal limits Cervical ROM: within normal limits Mallampati: Class II Dentition: chipped Comments: Comments: Poor dentition CV/HEM Hypertension Neuropsych Anxiety and Depression Anesthetic Plan ASA status: 2 Anesthesia: General Medications/Allergies Home Medications Medication Instructions Recorded Confirmed Last Taken Type aspirin 325 mg tablet 325 mg PO DAILY blot clot 10/14/22 11/01/22 10/30/22 Rx prevention 21 days #21 tabs calcium carbonate 600 mg-vitamin 1 tab PO BID Bone healing 30 days 10/14/22 11/01/22 10/30/22 Rx D3 10 mcg (400 unit) tablet #60 tabs losartan 100 1 tab PO DAILY 10/14/22 11/01/22 10/30/22 History mg-hydrochlorothiazide 12.5 mg tablet paroxetine HCl 20 mg tablet 20 mg PO DAILY 10/14/22 11/01/22 10/30/22 History sennosides 8.6 mg-docusate sodium 1 tab-cap PO DAILY #14 tabs 10/14/22 11/01/22 10/30/22 Rx 50 mg tablet (Senna-S) methocarbamol 500 mg tablet 500 mg PO Q8H PRN Muscle spasms 14 10/23/22 11/01/22 10/30/22 Rx days #42 tabs oxycodone-acetaminophen 10 mg-325 1 tab PO Q4-5H PRN Pain 11/01/22 11/01/22 11/01/22 01:00 History mg tablet Allergies Allergy/AdvReac Type Severity Reaction Status Date / Time No Known Drug Allergies Allergy Unknown Verified 11/01/22 10:25 Current Medications Generic Name Dose Route Start Last Admin Trade Name Freq PRN Reason Stop Dose Admin Sodium Chloride 1,000 mls @ 30 mls/hr 11/01/22 10:15 11/01/22 10:34 Sodium Chloride 0.9% IV 11/02/22 10:14 30 mls/hr .Q24H DORA Administration PFSH Anesthesia Medical History No significant past medical history Surgical History No pertinent past surgical history Family History Denies family history of CAD (coronary artery disease) Social History Alcohol intake: current Alcohol intake frequency: holidays/special occasions only Data Anesthesia Cardiac Studies: No Data to Display
[2022-11-01] MEDS: vancomycin 1,000 MG SDV 1000 MG XX (14:17)
[2022-11-01] MEDS: lidocaine 2% INJ 20 mL INJECTION (16:33)
--- NOTE | 2022-11-01 16:40 | XR_ITS ---
WS: [id number] XR knee RT 1-2V [id number] REASON FOR EXAM: OR PICS FINDINGS: Medial and lateral plate and screw fixation of complex fracture of the proximal tibia including the t ibial plateau articular surfaces. Fracture fragments and surgical appliances appear in proper position and alignment. Also noted is minimally comminuted oblique fracture through the proximal fibular metaphysis, minimall y displaced. XR/XR knee RT 1-2V [id number] IMPRESSION: Complex tibial fracture with fixation as above. 0
--- NOTE | 2022-11-01 17:51 | P.OP_ITS ---
Brief Operative Note Date of procedure: 11/01/22 Pre-op diagnosis: Right knee bicondylar tibial plateau fracture, status post Ex- Fix Post-op diagnosis: same (MCL injury) Procedure Done: Right knee spanning external fixator removal Right knee bicondylar tibial plateau open reduction and internal fixation Right knee MCL repair Surgeon: Niko Camarena Estimated blood loss (mL): 400 Complications: None Post-op Plan: Patient taken to PACU in stable condition. Patient will be admitted for observation for pain control and monitoring postoperatively. Orthopedics will continue to follow patient internal medicine consulted for medical management and assistance. Pain control, DVT prophylaxis, postoperative antibiotics, PT /OT. Patient will be nonweightbearing to the right lower extremity. He will be able to range the right knee as tolerated Condition: stable Disposition: observation Coding Level of Care Code Acute Code for Mitchell Ohara
--- NOTE | 2022-11-01 17:51 | P.OP_ITS ---
Operative Report Date of procedure: November 01, 2022 Pre-op diagnosis: Preop Diagnosis Right knee bicondylar tibial plateau fracture, status post Ex-Fix Post-op diagnosis: Right knee spanning external fixator for right knee bicondylar tibial plateau fracture Right knee MCL rupture Procedure done: Right knee spanning external fixator removal of hardware Right knee medial collateral ligament repair Right knee bicondylar tibial plateau fracture open reduction internal fixation (ORIF medial plateau, ORIF lateral plateau) Implants: Amaya 8 hole lateral proximal tibial plateau plate Amaya 6-hole medial proximal tibial plateau plate Combination of locking and nonlocking screws 15 cc cancellous bone chips [place] DBM plus putty with cancellous chips [employer] 4.5 helical oil suture anchor Surgeon: Niko Camarena DO Estimated blood loss: 400 mL No tourniquet was used IV fluids: 1700 mL Complications: None Findings: See operative report narrative Condition: stable Disposition: floor Brief History: Patient 42-year-old male who sustained a bicondylar tibial plateau roughly 3 weeks ago where he underwent right knee spanning external fixator he was worked up at that time no vascular injury he was taken to the OR emergently for right knee spanning external fixator he underwent this without any complications was monitored postoperatively and subsequently was discharged home for outpatient follow-up for plan for later definitive fixation. He now 3 weeks out is had management of his soft tissue envelope and this is amenable to surgery with positive wrinkle sign. He presents to the OR today for definitive fixation of right knee spanning external fixator removal and right bicondylar tibial plateau fracture open reduction internal fixation. We detailed out the risk benefits complication alternatives surgical nonsurgical treatment options. Understanding his risk for surgery he elects proceed with surgical intervention. All questions answered. Plan for likely admission postoperatively as patient lives over 3 hours away and would like to monitor pain postoperatively. Patient and understand agree with current plan. All questions are consent was reviewed and signed with patient Procedure: Patient presents to the preoperative holding area consent was reviewed and signed with patient. Correct extremity was then marked. He was then seen evaluate by Anesthesia Department once cleared for surgery was taken back to the operative suite. He was placed in supine position all bony prominences well- padded patient was appropriately secured to the bed. Patient had ipsilateral bump under the right hip with a bone foam placed into the right lower extremity for proper positioning. Underwent anesthesia per the anesthesia department once appropriately anesthetized prior to surgical prep and drape we brought in's fluoroscopic imaging to confirm appropriate positioning so we could have adequate imaging once this was confirmed the right lower extremity was then prepped and draped in Betadine with plan to leave the external fixator on to hel p maintain the length for ease of reduction the right lower extremity was then prepped and Betadine in standard fashion. Final timeout was performed. Patient received appropriate antibiotics. I started with my medial approach. A standard medial approach was then performed to the medial tibial plateau. This was performed on the posterior border of the tibia. Sharp scalpel excision was made through skin subcutaneous tissue maintaining exact hemostasis. I then I did identified the pes hamstring tendons these were then tagged and split within the dissected directly down to the fracture site. She does not have evident immediately that the MCL had been avulsed and interposed within the fracture site as result I then subsequently utilized a elevator and [place] to free out the interposed MCL and I subsequently utilizing a 2 oh fiber loop suture sutured the MCL with plan for repair. I then identified the fracture fragments on the medial plateau. There is a main transverse fracture pattern that then communicated to the lateral side as well as and there was a fracture in the sagittal plane that was evident on x-ray. Plan was for a ADP lag screw. I identified the sagittal fracture line. This up with interposed fracture hematoma and callus and then once able to get an anatomic read I then took a tenaculum clamp and clamped this sagittal split anterior to posterior and then I subsequently placed a 3.5 mm lag screw in lag by technique. This was done under fluoroscopic imaging and had satisfactory fixation this created 1 fracture fragment medially I then subsequently obtained a reduction with my tenaculum clamp and while holding this I then subsequently placed a helical oil [employer] suture anchor into the insertion site of the MCL and then utilizing the suture tied and repaired the MCL that was avulsed. This had excellent fixation and my plan then was to apply the proximal medial plate on top of this. I selected a 6-hole medial tibial plateau plate this was contoured appropriately to accommodate the patient's anatomy and placed in slight medial and anterior medial fashion as this is where the plate went to sit with the bone. I then subsequently drilled a distal screw just distal to the fracture line to bring the plate to bone this was translating my fracture medially and as a result at this point time I determined I was going to be able to work both lateral and medial in conjunction and as result transition to my lateral approach. I started my anterior O lateral approach in standard fashion curved as centering over Graciela's tubercle sharp scalpel incision was made through skin and subcutaneous tissue. I mobilized full-thickness skin flaps identified the fascia and then curved fashion released the fascia over Graciela's tubercle care to stay directly onto bone and released this fascia with a cuff of sleeve fascia to repair at the end of the case. Identified the large anterolateral fracture fragment that was in 1 whole piece with the tibial tuberosity. This was able to be reduced back to the shaft with a tenaculum. However there is still condylar widening and interposed fracture fragments that needed tamped up for articular reduction. Next I made my submeniscal arthrotomy utilized 0 Vicryl tag sutures to control this no meniscal tear was identified. Had visualization of the joint space as well as ability to irrigate out the knee joint which was subsequently performed. The main split laterally would not accommodate with our tamps to tamp up the depressed fracture fragments and as result I did make a cortical window. As result I opened up the fracture line laterally irrigated this out and then subsequently reduce this with a tenaculum and then created a cortical window laterally on this large fracture fragment to have direct access to these depressed fragments and this was performed with small osteotomes and then subsequently utilized my tamps to tamp up the fracture fragment. This was done under fluoroscopic imaging. There was a small fracture fragment within the intercondylar notch this was unable to be obtained controlled and as a result this was left the scarring as this was not a weightbearing surface. Once satisfied with taping up the articular surface I then subsequently selected cancellous 15 cc bone chips which was already had left in the institution these were used and I still had a little residual void that could be filled and I subsequently opened up Amaya [facility] putty with cancellous chips the soft field and the voided metaphyseal space and I subsequently achieved a reduction of the main anterolateral fracture fragment to the shaft and this keyed in nicely with excellent anatomic reduction and length. I then selected a 8 hole Amaya lateral proximal tibial plateau plate which had excellent spread and did not end at the level of my medial plate. I then while plate was in appropriate position I then placed K wires to hold this in the anterior to posterior plane I used fluoroscopic imaging to make sure plate position was appropriate just underneath the articular surface. Once satisfied with both plate placement I utilized a large periarticular clamp to close down the condylar widening and complete my reduction. Once this was confirmed I was satisfied with my overall articular reduction length and alignment was rotation and subsequently proceeded with compressing the plate to bone distally utilizing cortical screws as well as utilizing cortical screw proximally to bring the plate to bone on the proximal fixation and then subsequently once this was performed block the entire construct with multiple locking screws on the proximal fracture fragment rafter in the joint surface as well as finishing my fixation with locking screws distally. Next I went back to my medial incision and then subsequently drilled a nonlocking cancellous screw to compress the medial plate to bone and once this was performed I then subsequently placed additional locking screws proximally to complete this fixation and then placed an additional cortical screw distally to complete my fixation. Patient had excellent bone quality with excellent fixation with bicortical screws. This completed my medial fixation and my construct. Final x-rays were taken which showed overall good length and alignment as well as rotation and articular reduction. final x-rays of the knee I did subsequently take the knee through range of motion to confirm fracture stability with range of motion as well as no evidence of any displacing tuberosity fracture fragment and was satisfied. Wound bed was then thoroughly irrigated. There was a small void of the fracture fragment medially which I did place the left over DBM putty with cancellous chips in this area. Hemostasis was satisfactory. Final x-rays were then taken and showed satisfactory bicondylar tibial plateau open reduction and internal fixation. I then thoroughly irrigated the wound bed with 6 L of normal saline. I did redose patient's antibiotics at 4 hours. Within the incision sites I did sprinkle 1gram of Vanco powder for infection prophylaxis. Medial incision was then closed in layered fashion I then repaired the hamstring tendons with 0 Vicryl pop-off sutures over the plate and then subsequently closed the deep subcutaneous layer subcutaneous layer with 0 Vicryl suture and 2-0 Vicryl suture and then the skin was then closed with candelario. The lateral incision was then first repaired the submeniscal arthrotomy and then utilizing a free needle shuttled my suture through the small K wire holes of the plate then subsequently repaired my submeniscal arthrotomy. Next I utilized 0 Vicryl pop- off sutures to reapproximate multiple tension areas of the fascia over the plate which closed nicely and then subsequently utilizing a running strata fix suture closed the fascia over the plate. The next 0 Vicryl 2-0 Vicryl suture was then used to close approximate the subcutaneous tissue and then candelario were used to close the skin edges. I then utilizing Ex-Fix removal device subsequently removed the right knee spanning external fixator with clamps and bars through their entirety and then subsequently by hand removed the 2 pins in the femur as well as 2 pins in the tibia. These were then all removed atraumatically. Pin sites were then thoroughly curettaged out one of the proximal femurs had slight drainage noted has resolved we will send patient home on p.o. antibiotics for just for infection prophylaxis. These were then thoroughly irrigated and were left open to drain. His Xeroform 4 x 4's ABD Curlex and an Ab wrap was applied to these. 2 Silverlon dressings were placed over the medial and lateral incisions. Double 6 inch Ab wrap was applied to the right lower extremity. Patient was then awakened from anesthesia and taken to PACU in stable condition. Disposition: Patient taken to PACU in stable condition will be admitted to the floor postoperatively internal medicine on board for medical management. Patient will receive postoperative antibiotics as well as TXA and will be monitored for pain and neurovascular checks overnight plan for likely discharge home tomorrow. Patient will be nonweightbearing to the right lower extremity he will be able to range the right knee as he can tolerate. Patient will receive appropriate discharge instruction as well as pain medication postoperatively as well as DVT prophylaxis postoperatively given patient's drainage of one of the femur pin sites as well as duration of surgery we will give him a weeks worth of p.o. antibiotics for infection prophylaxis. Patient understands and agrees with current plan. All questions answered. Patient will follow-up with me in the office in 2 weeks.
--- NOTE | 2022-11-01 17:51 | PM.PACU ---
PACU note Narrative: Patient taken to PACU in stable condition. Patient will be admitted to the floor postoperatively dressings on in place clean dry and intact. His toes are warm well perfused distal pulses are palpable. Compartment soft and compressible. Patient is able to wiggle toes plantarflex and dorsiflex ankle. Patient dorsal sensation tact light touch to SPN/DPN/tibial saphenous and sural nerve distribution. Exam: awake Disposition: admitted
--- NOTE | 2022-11-01 17:54 | ANE.PACU2 ---
Inpatient post-anesthesia follow up: Airway intact: Yes Vital signs: Temperature 98.5 F Pulse Rate 108 Respiratory Rate 22 Blood Pressure 102/69 Pulse Oximetry 93 Oxygen Delivery Me thod Room Air Oxygen Flow Rate 10 Fraction of Inspir ed Oxygen Hydration adequate: Yes Nausea and vomiting: No Pain level: 3 Mental status: Baseline
--- NOTE | 2022-11-01 18:00 | PM.CONSULT ---
Providers/Reason For Consult Attending Physician: Niko Camarena DO History of Present Illness History of Present Illness Jonel Driver is a 42 year old male Medications/Allergies Home Medications Medication Instructions Recorded Confirmed Last Taken Type aspirin 325 mg tablet 325 mg PO DAILY blot clot 10/14/22 11/01/22 10/30/22 Rx prevention 21 days #21 tabs calcium carbonate 600 mg-vitamin 1 tab PO BID Bone healing 30 days 10/14/22 11/01/22 10/30/22 Rx D3 10 mcg (400 unit) tablet #60 tabs losartan 100 1 tab PO DAILY 10/14/22 11/01/22 10/30/22 History mg-hydrochlorothiazide 12.5 mg tablet paroxetine HCl 20 mg tablet 20 mg PO DAILY 10/14/22 11/01/22 10/30/22 History sennosides 8.6 mg-docusate sodium 1 tab-cap PO DAILY #14 tabs 10/14/22 11/01/22 10/30/22 Rx 50 mg tablet (Senna-S) methocarbamol 500 mg tablet 500 mg PO Q8H PRN Muscle spasms 14 10/23/22 11/01/22 10/30/22 Rx days #42 tabs oxycodone-acetaminophen 10 mg-325 1 tab PO Q4-5H PRN Pain 11/01/22 11/01/22 11/01/22 01:00 History mg tablet Allergies Allergy/AdvReac Type Severity Reaction Status Date / Time No Known Drug Allergies Allergy Unknown Verified 11/01/22 10:25 Current Medications Generic Name Dose Route Start Last Admin Trade Name Freq PRN Reason Stop Dose Admin Sodium Chloride 1,000 mls @ 30 mls/hr 11/01/22 10:15 11/01/22 13:43 Sodium Chloride 0.9% IV 11/02/22 10:14 Infused .Q24H DORA Infusion PFSH Acute PFSH: Medical History No significant past medical history Surgical History No pertinent past surgical history Family History Denies family history of CAD (coronary artery disease) Social History Alcohol intake: current Alcohol intake frequency: holidays/special occasions only Vitals/I&O/Wt Last Vital Signs Temp 98.5 F 11/01/22 17:37 Pulse 108 H 11/01/22 17:52 Resp 22 H 11/01/22 17:52 BP 102/69 11/01/22 17:52 Pulse Ox 93 11/01/22 17:52 O2 Del Method 11/01/22 17:52 O2 Flow Rate 10 11/01/22 17:45 11/01/22 11/01/22 11/01/22 06:59 14:59 22:59 Intake Total 1650 / 1650 1850 / 3500 Output Total 400 / 400 Balance 1650 / 1650 1450 / 3100 Weight last 48 hrs Weight 88.451 kg Coding Level of Care Code Acute Code for Chg Fwd
[2022-11-01] MEDS: HYDROmorphone 1 mg/mL INJ 1 mL 0.5 MG IVP (18:01)
--- NOTE | 2022-11-01 18:08 | XRR_ITS ---
PROCEDURE INFORMATION: Exam: XR Right Knee Exam date and time: 11/01/2022 5:14 PM Age: 42 years old Clinical indication: Device placement; Joint fixation hardware; Additional info: Postop orif tib plat right, ap and lateral of the knee please include distal extent of TECHNIQUE: Imaging protocol: Radiologic exam of the right knee. Views: 1 or 2 views. COMPARISON: CT knee RT wo con* [id number] 10/14/2022 7:56 AM FINDINGS: Bones/joints: Proximal fibular diaphyseal comminuted fracture with approximately 1/2 shaft displacement. Proximal tibial orthopedic plates bridging a comminuted tibial metaphyseal fracture with relatively good alignment of the fracture fragments. Surgical candelario about the knee. Joint effusion with air in the knee joint, likely postsurgical in nature. Soft tissues: Normal. XR/XR knee RT 1-2V [id number] IMPRESSION: 1. Proximal fibular diaphyseal comminuted fracture with approximately 1/2 shaft displacement. 2. Proximal tibial orthopedic plates bridging a comminuted tibial metaphyseal fracture with relatively good alignment of the fracture fragments. 3. Surgical candelario about the knee. 4. Joint effusion with air in the knee joint, likely postsurgical in nature.
[2022-11-01] MEDS: acetaminophen 500 mg Tablet 1000 MG PO (20:27)
[2022-11-01] MEDS: calcium carb-vit d 600mg/400unit 1 Tablet 1 EACH PO (20:28)
[2022-11-01] MEDS: iron polysaccharide complex 150 mg Capsule PO (20:28)
[2022-11-01] MEDS: sodium chloride 0.9% 1,000 ML 80 ML IV (20:28)
[2022-11-01] MEDS: docusate sodium 100 mg Capsule PO (20:28)
[2022-11-02] VITALS (8 sets, daily range): BP systolic 116–145; BP diastolic 64–75; PULSE 69–100; RESP 16–24; TEMP 36.4–37; O2SAT 95–97
[2022-11-02] MEDS: oxyCODONE 5 mg IR Tab/Cap PO ×2 (03:04→07:33)
[2022-11-02] MEDS: acetaminophen 500 mg Tablet 1000 MG PO ×2 (04:30→11:53)
[2022-11-02 05:34] LABS: Basophils % 0.1 %; Hematocrit 27.5 % (42.0-52.0); Hemoglobin 9.2 g/dL (11.7-16.6); Lymphocytes # 1.3 10^3/uL (0.8-4.8); Lymphocytes % 7.9 %; Mean Corpuscular HGB Conc 33.5 g/dL (30.0-36.0); Mean Corpuscular Hemoglobin 30.1 pg (28.0-34.0); Mean Corpuscular Volume 89.9 fl (80-94); Mean Platelet Volume 8.7 fL (7.4-10.4); Monocytes # 1.1 10^3/uL (0.2-0.9); Monocytes % 7.1 %; Neutrophils # 13.47 10^3/uL (1.8-7.7); Neutrophils % 84.3 %; Nucleated Red Blood Cells % 0 %; Platelet Count 426 10^3/cmm (130-400); Red Blood Count 3.06 10^6/uL (4.1-5.3)
[2022-11-02 05:53] LABS: Anion Gap 12.2 (5-19); Blood Urea Nitrogen 17 mg/dL (6-20); Calcium 8.2 mg/dL (8.5-10.5); Carbon Dioxide 26 mmol/L (22-29); Chloride 103 mmol/L (98-107); Glomerular Filtration Rate 66.4 mL/min (90-130); Glucose 141 mg/dL (65-115); Osmolality Calculated 288 mOsm/kg (285-295); Potassium 4.2 mmol/L (3.5-5.1); Sodium 137 mmol/L (136-145)
[2022-11-02] MEDS: ceFAZolin 2,000 MG in sodium chloride 0.9% (plus) 50 ML 100 MG IV (07:36)
[2022-11-02] MEDS: aspirin 325 mg EC Tablet PO (07:37)
[2022-11-02] MEDS: calcium carb-vit d 600mg/400unit 1 Tablet 1 EACH PO (09:41)
[2022-11-02] MEDS: multivitamin therapeutic Tablet 1 TAB PO (09:41)
[2022-11-02] MEDS: sennosides-docusate Tablet 1 TAB PO (09:41)
[2022-11-02] MEDS: docusate sodium 100 mg Capsule PO (09:42)
[2022-11-02] MEDS: PARoxetine 20 mg Tablet PO (09:42)
[2022-11-02] MEDS: iron polysaccharide complex 150 mg Capsule PO (09:42)
--- NOTE | 2022-11-02 10:35 | PC.CHAP ---
Pastoral Care Encounter/Spiritual Assessment Type of Contact [] Declined engraved roller inspector visit [] Patient/Family/Request visit [] Outpatient visit [] Follow-up visit [] Physician referral [] Code/Alert [x] Routine visit [] Staff referral [] Actively dying [] Patient sleeping [] Family support [] [] Out of room [] Palliative care [] [x] Receiving care in room [] Pre-surgical visit [] Trauma [] Long length of stay [] ICU visit [] Other: Relational/Emotional Strength [x] Patient feels connected with others/family/visitors/staff [] Distress [] Loneliness/isolation [] Abandonment Spirituality of Patient [x] Person of Amina [] Attends Buddhist of their Amina [x] Believes in Prayer [] Reads Bible or Adventism materials [] There are Spiritual issues to be addressed Sales Development Executive Interventions [x] Prayer [x] Active listening [x] Non-anxious presence [x] Spiritual/emotional support [] Crisis/trauma care [x] Spiritual counseling [] Bereavement support [] Provided bereavement packet [] Provided Bible/devotional materials [] Provided toy/stuffed animal, coloring book to patient or family member [] Provided Communion [] Anointing/Hertel [] Salvation [x] Completed spiritual assessment [] Other: Impact on Illness or Injury [] Angry [] Fearful [] Anxious [] Often cries [] Exhaustion [] Unable to work [] Unable to attend restorationist [] Unable to walk/stand [] Unable to read [] Unable to drive [] Unable to eat/drink [] Unable to sleep [] Unable to be with family [] Patient intubated [] Other: Summary not sure about health has a good attitude well go home Time spent with patient 10 mins
[2022-11-02] MEDS: sodium chloride 0.9% 1,000 ML 80 ML IV (10:43)
[2022-11-02] MEDS: TRAMadol 50 mg Tablet 100 MG PO (11:53)
--- NOTE | 2022-11-02 12:05 | PC.OT ---
OT NOTE: OT EVALUATION ORDERS RECEIVED. SCREEN PERFORMED; NO FURTHER SKILLED OT REQUIRED AT THIS TIME.
--- NOTE | 2022-11-02 14:55 | PM.DCS ---
Discharge Providers Date of Admission: 11/01/22 18:32 Date of Discharge: November 02, 2022 Attending Provider at Admission: Niko Camarena DO Attending Provider at Discharge: Niko Camarena DO Consults: Hospitalist Diagnoses at Discharge Discharge Diagnosis (1) Closed bicondylar fracture of right tibial plateau: Status: Acute (2) Fracture of fibula, proximal: Status: Acute Reason for Visit Reason for Visit: Bicondylar tibial plateau fracture right Hospital Course Hospital Course Patient was brought into the hospital through the preoperative holding area. Patient had sustained a bicondylar tibial plateau fracture as well as a proximal fibula fracture underwent a right knee spanning external fixator by myself roughly 3 weeks prior. Seen in the outpatient setting and cleared for plan for definitive fixation of Ex-Fix removal and right bicondylar tibial plateau ORIF. Once cleared preoperatively was taken back to the operative suite. Patient underwent anesthesia and the surgery without any complications. He was then taken to PACU in stable condition and subsequently was then admitted postoperatively for observation just for pain control and postoperative monitoring as patient does live over 3 hours away. He subsequently had internal medicine was on board for medical management and assistance. His pain was controlled with medications his labs were monitored postoperatively. He was determined on postoperative day 1 that he was stable for discharge from an orthopedic standpoint. Patient is nonweightbearing to the right lower extremity knee range of motion as tolerated PT/OT on board. Postoperative pain medication postoperative antibiotics, TXA, DVT prophylaxis. On postop day 1 his pain was well controlled and he was ready for discharge home. He was given appropriate discharge structure as well as pain medication DVT prophylaxis, and an antibiotic prescription for surgical prophylaxis. Patient to follow-up with me in the office in 2 weeks. Patient understands and agrees with current plan. All questions answered. Physical Exam Narrative: Examination of the right lower extremity dressings on in place clean dry and intact. Distal pulses are palpable toes are warm well-perfused brisk capillary refill less than 2 seconds. Sensation intact to light touch distally at the SPN/DPN tibial saphenous and sural nerve distribution. Compartments are soft and compressible. Patient is able to wiggle toes, plantarflex and dorsiflex ankle. Discharge Data Studies Completed and Pending Completed Studies During Hospitalization Category Date Time Status XR knee RT 1-2V 51906 Routine Exams 11/01/22 16:40 Completed XR knee RT 1-2V [id number] Routine Exams 11/01/22 18:08 Completed Radiology Impressions Knee X-Ray 11/01/22 18:08 IMPRESSION: 1. Proximal fibular diaphyseal comminuted fracture with approximately 1/2 shaft displacement. 2. Proximal tibial orthopedic plates bridging a comminuted tibial metaphyseal fracture with relatively good alignment of the fracture fragments. 3. Surgical candelario about the knee. 4. Joint effusion with air in the knee joint, likely postsurgical in nature. Laboratory Results WBC 16.0 10^3/uL (4.0-10.0) H 11/02/22 05:25 RBC 3.06 10^6/uL (4.1-5.3) L 11/02/22 05:25 Hgb 9.2 g/dL (11.7-16.6) L 11/02/22 05:25 Hct 27.5 % (42.0-52.0) L 11/02/22 05:25 MCV 89.9 fl (80-94) 11/02/22 05:25 MCH 30.1 pg (28.0-34.0) 11/02/22 05:25 MCHC 33.5 g/dL (30.0-36.0) 11/02/22 05:25 RDW 12.0 % (12.1-15.1) L 11/02/22 05:25 Plt Count 426 10^3/cmm (130-400) H 11/02/22 05:25 MPV 8.7 fL (7.4-10.4) 11/02/22 05:25 Neut % (Auto) 84.3 % 11/02/22 05:25 Lymph % (Auto) 7.9 % 11/02/22 05:25 [place] % (Auto) 7.1 % 11/02/22 05:25 Eos % (Auto) 0.0 % 11/02/22 05:25 Baso % (Auto) 0.1 % 11/02/22 05:25 Neut # (Auto) 13.47 10^3/uL (1.8-7.7) H 11/02/22 05:25 Lymph # (Auto) 1.3 10^3/uL (0.8-4.8) 11/02/22 05:25 [place] # (Auto) 1.1 10^3/uL (0.2-0.9) H 11/02/22 05:25 Eos # (Auto) 0.0 10^3/uL (0.0-0.8) 11/02/22 05:25 Baso # (Auto) 0.0 10^3/uL (0.0-0.1) 11/02/22 05:25 Nucleated RBC % (auto) 0 % 11/02/22 05:25 Nucleated RBCs # 0.0 /100WBC 11/02/22 05:25 Sodium 137 mmol/L (136-145) 11/02/22 05:25 Potassium 4.2 mmol/L (3.5-5.1) 11/02/22 05:25 Chloride 103 mmol/L (98-107) 11/02/22 05:25 Carbon Dioxide 26 mmol/L (22-29) 11/02/22 05:25 Anion Gap 12.2 (5-19) 11/02/22 05:25 BUN 17 mg/dL (6-20) 11/02/22 05:25 Creatinine 1.2 mg/dL (0.7-1.2) 11/02/22 05:25 GFR Calculation 66.4 mL/min (90-130) L 11/02/22 05:25 Glucose 141 mg/dL (65-115) H 11/02/22 05:25 Calculated Osmolality 288 mOsm/kg (285-295) 11/02/22 05:25 Calcium 8.2 mg/dL (8.5-10.5) L 11/02/22 05:25 Vitals Last Vital Signs Temp 98.0 F 11/02/22 11:45 Pulse 94 11/02/22 11:45 Resp 16 11/02/22 11:45 BP 118/71 11/02/22 11:45 Pulse Ox 97 11/02/22 11:45 O2 Del Method 11/02/22 11:45 O2 Flow Rate 10 11/01/22 17:45 Discharge Plan Discharge Patient Disposition: Home Condition: Stable Prescriptions: New cephalexin 500 mg capsule 500 mg PO Q8H 7 Days Qty: 21 0RF Continued paroxetine HCl 20 mg tablet 20 mg PO DAILY losartan-hydrochlorothiazide 100-12.5 mg tablet 1 tab PO DAILY calcium carbonate-vitamin D3 600 mg-10 mcg (400 unit) Tablet 1 tab PO BID 30 Days Qty: 60 0RF sennosides-docusate sodium [Senna-S] 8.6-50 mg tablet 1 tab-cap PO DAILY Qty: 14 0RF methocarbamol 500 mg tablet 500 mg PO Q8H PRN (Reason: Muscle spasms) 14 Days Qty: 42 0RF aspirin 325 mg tablet 325 mg PO DAILY 21 Days Qty: 21 0RF oxycodone-acetaminophen 10-325 mg tablet 1 tab PO Q4-5H PRN (Reason: Pain postop ORIF Tibial Plateau) 7 Days Qty: 42 0RF Discharge Orders: Discharge Order (Routine); Ordered 11/02/22 Ordered By: Niko Camarena Referrals: Niko Camarena DO [Physician] - 11/16/22 2:00 pm Discharge Diet: Advance as tolerated Discharge Activity: Limit activity as instructed Patient Instructions: Cephalexin (By mouth), Oxycodone/Acetaminophen (By mouth), Methocarbamol (By mouth), Leg Fracture (DC), Opioid Safety Activity Restrictions/Additional Instructions: Orthopedic discharge instructions: Patient may loosen Ab wrap as needed if feeling too tight Ice and elevate is much as possible for pain and swelling Patient should be nonweightbearing to the right lower extremity Range of motion of the right knee as tolerated Ambulate with crutches or a walker maintaining nonweightbearing right lower extremity restrictions Take pain medication as prescribed Take aspirin for blood clot prevention Supplement with Citracal vitamin D Take muscle relaxer as needed for muscle spasms Take antibiotics as prescribed Follow-up with Dr. Camarena in the office in 2 weeks Keep incisions clean dry and intact Do not get incisions wet, leave Silverlon pill stick dressings on the incision sites may perform daily dressing changes to the previous Ex-Fix pin sites with simple dry dressing. Drainage is to be expected out of these, these will heal inside out. Contact the office for any questions or concerns Discharge Attestations Time Spent in Discharge Care*: greater than 30 min Quality Metrics Clinical Quality Measures [ No reported AMI, CVA or VTE this stay] Coding Level of Care Code Acute Code for Chg Fwd Diagnoses Closed bicondylar fracture of right tibial plateau S82.141A Fracture of fibula, proximal S82.839A
--- NOTE | 2022-11-02 15:07 | PC.NURSE ---
Discussed discharge with new medications, continued medications, follow up appointment and for patient to call PCP for an appointment since the PCP is out of our network. Patient and spouse verbalized understanding
== END 2022-11-02 14:57 | disposition home or self-care (01) ==
LOC: MEDSURG 22:16
PROVIDERS: Admitting Provider Student in an Organized Health Care Education/Training Program; Visit Provider Student in an Organized Health Care Education/Training Program
PROC: (CPT 20694; principal; 2022-11-01 11:50)
PROC: (CPT 20694; 2022-11-01 11:50)
DX: S82.141A Displaced bicondylar fracture of right tibia, initial encounter for closed fracture (principal); S83.411A Sprain of medial collateral ligament of right knee, initial encounter; X58.XXXA Exposure to other specified factors, initial encounter; I10 Essential (primary) hypertension; Z79.82 Long term (current) use of aspirin
CPT/HCPCS: 20694; 27536 ×2; 36415; 73560; 76000; 80048; 85025; 97110; C1713; G0378; J0131; J0690; J1100; J1170; J1885; J2405; J2704; J3010; J3370; J3490; J7030; J7120

== ENCOUNTER → 2022-11-13 10:31 | Outpatient (BNVA) | payer OTHER, SELFPAY | PROVIDERS: Visit Provider Student in an Organized Health Care Education/Training Program | DX: Z98.890 Other specified postprocedural states (principal); X58.XXXD Exposure to other specified factors, subsequent encounter; S82.141D Displaced bicondylar fracture of right tibia, subsequent encounter for closed fracture with routine healing | CPT/HCPCS: 73560 ==

== ENCOUNTER 2022-11-13 14:39 | Outpatient (CLI) | payer OTHER, SELFPAY | END 2022-11-13 14:40 | disposition home or self-care (01) | LOC: SPT 14:40 | PROVIDERS: Visit Provider Student in an Organized Health Care Education/Training Program | DX: Z46.89 Encounter for fitting and adjustment of other specified devices (principal); S82.141D Displaced bicondylar fracture of right tibia, subsequent encounter for closed fracture with routine healing; S82.839D Other fracture of upper and lower end of unspecified fibula, subsequent encounter for closed fracture with routine healing; X58.XXXD Exposure to other specified factors, subsequent encounter; Z98.890 Other specified postprocedural states | CPT/HCPCS: 97760; L1832 ==

== ENCOUNTER → 2022-12-11 09:58 | Outpatient (BNVA) | payer OTHER, SELFPAY | PROVIDERS: Visit Provider Student in an Organized Health Care Education/Training Program | DX: S82.251D Displaced comminuted fracture of shaft of right tibia, subsequent encounter for closed fracture with routine healing (principal); S82.831D Other fracture of upper and lower end of right fibula, subsequent encounter for closed fracture with routine healing; X58.XXXD Exposure to other specified factors, subsequent encounter | CPT/HCPCS: 73560 ==

== ENCOUNTER → 2023-01-01 09:55 | Outpatient (BNVA) | payer OTHER, SELFPAY | PROVIDERS: Visit Provider Student in an Organized Health Care Education/Training Program | DX: S82.141A Displaced bicondylar fracture of right tibia, initial encounter for closed fracture (principal); S82.831A Other fracture of upper and lower end of right fibula, initial encounter for closed fracture; X58.XXXA Exposure to other specified factors, initial encounter | CPT/HCPCS: 73560; 73565 ==

== ENCOUNTER → 2023-02-12 09:57 | Outpatient (BNVA) | payer OTHER, SELFPAY | PROVIDERS: Visit Provider Student in an Organized Health Care Education/Training Program | DX: S82.141D Displaced bicondylar fracture of right tibia, subsequent encounter for closed fracture with routine healing (principal); S82.831D Other fracture of upper and lower end of right fibula, subsequent encounter for closed fracture with routine healing; X58.XXXD Exposure to other specified factors, subsequent encounter | CPT/HCPCS: 73560; 73565 ==

== ENCOUNTER → 2023-04-17 09:13 | Outpatient (BNVA) | payer OTHER, SELFPAY | PROVIDERS: Visit Provider Nurse Practitioner Family | DX: S82.144D Nondisplaced bicondylar fracture of right tibia, subsequent encounter for closed fracture with routine healing; S82.401D Unspecified fracture of shaft of right fibula, subsequent encounter for closed fracture with routine healing; X58.XXXD Exposure to other specified factors, subsequent encounter | CPT/HCPCS: 73562 ==

== ENCOUNTER → 2023-05-10 13:27 | Outpatient (BNVA) | payer OTHER, SELFPAY | PROVIDERS: Visit Provider Physician Assistant | DX: X58.XXXD Exposure to other specified factors, subsequent encounter; S82.831D Other fracture of upper and lower end of right fibula, subsequent encounter for closed fracture with routine healing; S82.141D Displaced bicondylar fracture of right tibia, subsequent encounter for closed fracture with routine healing | CPT/HCPCS: 73562 ==